=== PATIENT | male | born 1985 | race Caucasian/White ===

== ENCOUNTER 2017-04-08 12:23 | Outpatient (CLI) | END 2017-04-08 12:24 | disposition home or self-care (01) | LOC: LAB 12:23 | PROVIDERS: ATTEND Nurse Practitioner Family | DX: N48.21 Abscess of corpus cavernosum and penis (principal) | CPT/HCPCS: 87070 ==

== ENCOUNTER 2017-04-11 15:27 | Outpatient (CLI) ==
--- NOTE | 2017-04-12 08:07 | US ---
Exam: Ultrasound penis History: Redness and possible abscess Findings / impression: Targeted ultrasound of the area concern along the dorsum of the distal penis. No collection or infiltrating edematous change is seen. Color Doppler does suggest some increased v ascularity. There is no evidence of abscess.
== END 2017-04-11 15:28 | disposition home or self-care (01) ==
LOC: RAD 15:27
PROVIDERS: ATTEND Nurse Practitioner Family
DX: N48.21 Abscess of corpus cavernosum and penis (principal)

== ENCOUNTER 2017-04-18 12:14 | Outpatient (CLI) ==
[2017-04-21 15:19] LABS: HSV 1 IGM ANTIBODIES <1:10 titer (<1:10); HSV 2 IGM ANTIBODIES <1:10 titer (<1:10)
== END 2017-04-18 12:15 | disposition home or self-care (01) ==
LOC: LAB 12:14
PROVIDERS: ATTEND Nurse Practitioner Family
DX: N48.1 Balanitis (principal); T14.8XXA Other injury of unspecified body region, initial encounter
CPT/HCPCS: 36415; 86695; 86696; 87070; 87186

== ENCOUNTER 2017-05-30 16:28 | Outpatient (CLI) ==
[2017-05-30 16:57] LABS: BASOPHILS # (AUTO) 0.1 K/uL (0-0.2); BASOPHILS % (AUTO) 0.7 % (0.0-3.0); EOSINOPHILS # (AUTO) 0.1 K/ul (0.0-0.7); HEMATOCRIT 43.6 % (42.0-52.0); HEMOGLOBIN 15.6 g/dl (14.0-18.0); IMMATURE GRANULOCYTE % (AUTO) 0.4 % (0.0-5.0); LYMPHOCYTES # (AUTO) 2.5 K/uL (0.60-3.4); LYMPHOCYTES % (AUTO) 27.3 (10.0-50.0); MEAN CORPUSCULAR HEMOGLOBIN 28.8 pg (27.0-31.0); MEAN CORPUSCULAR HGB CONC 35.8 (31.8-35.4); MEAN CORPUSCULAR VOLUME 80.6 fl (80.0-94.0); MONOCYTES # (AUTO) 0.9 K/uL (0.4-2.0); MONOCYTES % (AUTO) 9.4 (0-10); NEUTROPHILS # (AUTO) 5.6 K/ul (2.0-6.9); NEUTROPHILS % (AUTO) 61.2; PLATELET COUNT 387 10^3/uL (140-440); RED BLOOD COUNT 5.41 10^6/ul (4.70-6.10); WHITE BLOOD COUNT 9.19 K/ul (4.2-10.2)
[2017-05-30 17:10] LABS: ALBUMIN 3.9 g/dL (3.4-5.0); ALBUMIN/GLOBULIN RATIO 1.11; ANION GAP 13.8; BILIRUBIN,TOTAL 0.45 mg/dL (0.00-1.20); BUN/CREATININE RATIO 11.27; CALCIUM 9.2 mg/dL (8.2-10.2); CREATININE 1.33 mg/dL (0.60-1.10); POTASSIUM 3.8 mmol/L (3.5-5.1); TOTAL PROTEIN 7.4 g/dL (6.4-8.2)
== END 2017-05-30 16:29 | disposition home or self-care (01) ==
LOC: LAB 16:28
PROVIDERS: ATTEND Emergency Medicine
DX: Z00.00 Encounter for general adult medical examination without abnormal findings (principal); N48.1 Balanitis
CPT/HCPCS: 36415; 80053; 85025; 86780

== ENCOUNTER 2018-07-31 08:21 | Outpatient (CLI) | END 2018-07-31 08:22 | disposition home or self-care (01) | LOC: RHC-LAB 08:21 | PROVIDERS: ATTEND Nurse Practitioner Family | DX: I10 Essential (primary) hypertension (principal) | CPT/HCPCS: 36415; 80053; 80061; 84443; 85007; 85025 ==